=== PATIENT | female | born 1975 | race Two or more races ===

== ENCOUNTER 2024-07-20 22:36 | Emergency (ER) | payer OTHER ==
[~2024-07-20] VITALS: Ht 157.5 cm; Wt 79.4 kg
[~2024-07-20 22:36] MED LIST: GLUCOPHAGE XR500 MG PO; KETO10TA2 PO; LEVSIN/SL0.125 MG SL
[2024-07-20] MEDS ORDERED: TRIJARDY XR 101 EACH (23:06)
[2024-07-21] MEDS ORDERED: POVIDONE-IODINE 118 ML BOTT TOP ONE (01:03)
[2024-07-21] MEDS ORDERED: BACITRACIN-NEOMYCIN-POLYMYXIN 0.9 GM PACKET TOP ONE (01:11)
[2024-07-21] MEDS ORDERED: KETOROLAC TROMETHAMINE 30 MG VIAL ONE (01:16)
[2024-07-21] MEDS ORDERED: CEFTRIAXONE SODIUM 2,000 MG VIAL ONE (01:16)
[2024-07-21] MEDS ORDERED: KETOROLAC TROMETHAMINE 30 MG VIAL IV STA (01:17)
[2024-07-21] MEDS ORDERED: CEFTRIAXONE SODIUM 2,000 MG VIAL IV ONE (01:30)
[2024-07-21 02:02] LABS: BASO % 0.4 % (0.1-1.2); EOS % 2.7 % (0.7-7.0); HEMATOCRIT 40.5 % (34.1-44.9); HEMOGLOBIN 13.7 g/dL (11.2-15.7); LYMPH # 4.49 (1.18-3.74); MEAN CORPUSCULAR HEMOGLOBIN 29.7 pg (25.6-32.2); MONO # 0.79 (0.24-0.82); MONO % 7.2 % (4.7-12.5); NEUT % 48.4 % (34.0-71.1); PLATELET COUNT 265 K/uL (163-369); RED BLOOD COUNT 4.61 M/uL (3.93-5.22)
[2024-07-21 02:30] LABS: CREATININE SERUM 0.38 mg/dL (0.55-1.02); GFR 179.26; POTASSIUM 4.12 mEq/L (3.5-5.1)
[2024-07-21] MEDS ORDERED: CLEOCIN HCL300 MG PO (03:36)
== END 2024-07-21 04:02 ==
LOC: ER 23:00
PROVIDERS: General Practice
DX: N94.89 Other specified conditions associated with female genital organs and menstrual cycle (principal); E11.9 Type 2 diabetes mellitus without complications; Z79.84 Long term (current) use of oral hypoglycemic drugs